=== PATIENT | male | born 1970 | race American Indian/Alaskan Native ===

== ENCOUNTER 2018-08-03 10:22 | Outpatient (CLI) | payer OTHER ==
--- NOTE | 2018-08-03 13:52 | XRay Report ---
XRAY BILATERAL KNEE 2 VIEWS EACH: 08/03/18 10:22:00 CLINICAL: Pain. FINDINGS: Right: Moderate osteoarthritis, worse in the medial joint. Moderate narrowing of the medial joint with osteophytes. Slight widening of the lateral joint with a femoral osteophyte. Patellofemoral osteoarthritis. No fracture or dislocation. No joint effusion. Normal soft tissues. Left: Moderate osteoarthritis of the medial joint with narrowing of the joint space and osteophytes. Mild osteoarthritis of the patellofemoral joint. The lateral joint is normal. No joint effusion.Normal soft tissues. IMPRESSION: Moderate bilateral osteoarthritis.
== END 2018-08-03 10:23 | disposition home or self-care (01) ==
LOC: XRAY 10:22
PROVIDERS: ATTEND Internal Medicine
DX: Z02.71 Encounter for disability determination (principal); M17.0 Bilateral primary osteoarthritis of knee; M25.762 Osteophyte, left knee; M25.761 Osteophyte, right knee